=== PATIENT | female | born 1955 | race Caucasian/White ===

== ENCOUNTER 2016-09-13 09:17 | Inpatient (IN) | payer OTHER ==
[2016-07-28 13:52] VITALS: BMI 47.0
--- NOTE | 2016-07-28 14:41 | PAT Medication Instructions ---
Service Date Jul 28, 2016. Current Home Medication List Atenolol (Tenormin), 50 MG PO QAM Calcium Carbonate (Tums), 0.5-1 TAB PO PRN Cholecalciferol (Vitamin D3), 1 CAP PO QAM Hydrochlorothiazide (Hctz), 25 MG PO QAM Meloxicam (Mobic), 15 MG PO QAM Multivitamin (Multivitamin), 1 TAB PO DAILY Tramadol (Ultram), 50 MG PO TID Medication Instructions For Your Scheduled Surgery - Hold the following medications the morning of surgery: Multivitamin (Multivitamin), 1 TAB PO DAILY Calcium Carbonate (Tums), 0.5-1 TAB PO PRN Cholecalciferol (Vitamin D3), 1 CAP PO QAM Hydrochlorothiazide (Hctz), 25 MG PO QAM Meloxicam (Mobic), 15 MG PO QAM (surgeon did not tell patient to stop) - Take the following medications the morning of surgery with a sip of water: Tramadol (Ultram), 50 MG PO TID (can take up to four hours prior to surgery if needed) Atenolol (Tenormin), 50 MG PO QAM - Take the following medications as scheduled the night before surgery: Tramadol (Ultram), 50 MG PO TID If you have any questions please call us at [phone] or [phone] ( [place]) or [phone]
[2016-07-28 15:13] LABS: BASO % 0.7 %; BASO ABS # 0.04 K/uL (0-0.2); COMPLETE YES; HEMATOCRIT 36.2 % (37-47); IG% 0.2 %; LYMPH % 35.7 %; MEAN CELL VOLUME 92.6 fL (80-100); MEAN CORPUSCULAR HEMOGLOBIN 30.9 pg (25-34); MEAN CORPUSCULAR HGB CONC 33.4 g/dl (32-36); MEAN PLATELET VOLUME 11.5 fL (7.4-10.4); MONO % 8.4 %; PLATELET COUNT 193 K/uL (130-400); RED BLOOD COUNT 3.91 M/uL (4.2-5.4); WHITE BLOOD COUNT 5.61 K/uL (4.8-10.8)
--- NOTE | 2016-07-28 15:13 | DIAGNOSTIC IMAGING REPORT ---
CHEST 2 VIEWS ROUTINE CLINICAL HISTORY: Preoperative evaluation COMPARISON STUDY: No previous studies for comparison. FINDINGS: There is mild to moderate elevation/eventration of the right hemidiaphragm. There is no pneumothorax or pleural effusion. Mild linear left basilar opacity suggestive of atelectasis. There is no evidence of pulmonary edema. There is mild cardiomegaly. No consolidation is present. IMPRESSION: 1. No acute cardiopulmonary findings. 2. Mild cardiomegaly. Electronically signed by: Jose Raul Ferrell M.D. 07/28/2016 3:12 PM
[2016-07-28 15:22] LABS: PARTIAL THROMBOPLASTIN RATIO 0.9; PROTHROMBIN TIME (PATIENT) 10.3 SECONDS (9.0-12.0)
[2016-07-28 16:36] LABS: ESTIMATED AVERAGE GLUCOSE 100 mg/dl; HA1C FLAG Normal (Normal)
[2016-07-28 16:47] LABS: BUN/CREATININE RATIO 21.9 (10-20); CREATININE 0.85 mg/dl (0.60-1.20); POTASSIUM 4.2 mmol/L (3.5-5.1)
[2016-07-28 20:24] LABS: CALCIUM 9.6 mg/dl (8.5-10.1)
--- NOTE | 2016-08-15 16:13 | History and Physical ---
History & Physical Date Aug 15, 2016. Chief Complaint Left Knee Pain History of Present Illness Darcy is a pleasant 60-year-old female who presents for preoperative evaluation prior to a Left knee replacement. Patient states that they have been having pain in this knee for many years now, which has gradually worsened, it has now gotten to the point it is affecting her daily activities including walking, standing, going up and down steps. Patient has tried and failed conservative measures including previous cortisone injection, viscosupplementation, bracing, physical therapy, and PO NSAIDs with no relief. At this point in time, patient has failed conservative measures and would like to proceed with a left knee replacement. Past Medical/Surgical History Hypertension Obesity GERD Sciatica history of blood clot Additional History Hepatic Disease: No Hypertension: Yes Infectious Diseases: No Allergies Coded Allergies: No Known Allergies (Unverified , 07/28/16) Home Medications Scheduled Atenolol (Tenormin), 50 MG PO QAM Calcium Carbonate (Tums), 0.5-1 TAB PO PRN Cholecalciferol (Vitamin D3), 1 CAP PO QAM Hydrochlorothiazide (Hctz), 25 MG PO QAM Meloxicam (Mobic), 15 MG PO QAM Multivitamin (Multivitamin), 1 TAB PO DAILY Tramadol (Ultram), 50 MG PO TID Physical Examination Skin: warm/dry, no rash Eyes: normal inspection, EOMI, sclerae normal ENT: normal ENT inspection, pharynx normal Respiratory/Chest: lungs clear, normal breath sounds, no respiratory distress Cardiovascular: regular rate, rhythm, no edema, no murmur Abdomen / GI: normal bowel sounds, non tender Addiitonal Comments: Left Knee: Knee ROM L * Active ROM - Flexion: 100 degrees, Extension: 5 degrees, Factors: pain, Description: Active painful ROM. Knee ROM R * Active ROM - Flexion: 100 degrees, Extension: 5 degrees, Factors: pain, Description: Active painful ROM. Strength LE Normal Strength Description - Normal lower extremity: Bilateral. Knee * Inspection - Gait: Limp. Alignment - Right: neutral, Left: neutral. Ecchymosis - Right: negative, Left: negative. Effusion - Right: mild, Left: mild. Swelling - Right: mild, Left: mild. Maximum tenderness - Right: Medial Joint Line, Left: Medial Joint Line. Patella exam - Crepitation - Right: mild, Left: mild. Patella position - Right: neutral, Left: neutral. Knee Normal Inspection - Atrophy - Right: Absent, Left: Absent. Skin - Right: Normal, Left: Normal. Patella exam - Apprehension - Right: Negative, Left: Negative. Q-angle - Right: Normal, Left: Normal. Posterior drawer - Right: Negative, Left: Negative. Anterior drawer - Right: Negative, Left: Negative. Valgus stress - Right: Negative, Left: Negative. Varus stress - Right: Negative , Left: Negative. Extensor lag - Right: Normal, Left: Normal. Neurovascular LE Normal Neurovascular examination including reflexes, sensation , and pulses is within normal limits. Diagnosis Left Knee DJD PM has outlined above Xrays of left knee: Xrays reviewed of the left knee showing findings consistent with degenerative joint disease including joint space narrowing, subchondral sclerosis and peripheral osteophyte formation. no acute bony pathology, overall valgus alignment. Impression: degenerative joint disease of the left knee with significant valgus alignment, with no acute bony pathology noted. Plan of Treatment Further care discussed with patient and at this point in time has failed conservative measures and would like to proceed with a left total knee replacement. Plan on discharge will be home with home health physical therapy. DVT prophalaxis with TEDs, SCDs and will also place on aspirin 81 mg p.o. b.i.d. for a month postop. Patient will have follow up appointment in our office two weeks post op for staple/suture removal and re-evaluation. Patient otherwise has no other questions or concerns.
[2016-09-13] VITALS (11 sets, daily range): BP systolic 129–167; BP diastolic 59–84; PULSE 60–88; TEMP 36.3–36.6; O2SAT 93–99; Ht 154.9 cm; Wt 117.0 kg
[~2016-09-13] VITALS: Ht 154.9 cm; Wt 117.0 kg
--- NOTE | 2016-09-13 07:15 | History & Physical Bridge Note ---
H&P Re-Evaluation Bridge Note: I have examined the patient, reviewed the History & Physical and in the interval since the performance of the History & Physical I have noted the following changes of clinical significance: No changes noted
[~2016-09-13 09:17] MED LIST: ACETAMINOPHEN 500 MG TAB PO SCH; ATEN50TA8 PO; ATROPINE SULFATE 0.1 MG/ML 5ML SYR IV PRN; BUPIVACAINE 0.25% 30 ML VIAL ONE; BUPIVACAINE 0.5 % 5 MG/1 ML PF 10ML VIAL ONE; CALC500C3 PO; CEFAZOLIN 2000 MG/60 ML D5W 60 ML IV SCH; CHOL2000 PO; CeleBREX 200 MG CAP PO SCH; DEXAMETHASONE 4 MG TAB PO SCH; EpHEDrine SULFATE INJ 50 MG/ML AMP IV PRN; FAMOTIDINE 20 MG TAB PO SCH; FENTANYL CITRATE INJ 50 MCG/1 ML 2 ML VIAL IV PRN; FENTANYL CITRATE INJ 50 MCG/1 ML 2 ML VIAL ONE; GABAPENTIN 300 MG CAP PO SCH; HYDR25TA4 PO; LACTATED RINGER'S 1000ML IV SCH; LACTATED RINGER'S 500 ML IV SCH; LIDOCAINE HCL 2% 2 ML VIAL (20MG/ML) ONE; MELO7.5T5 PO; METOCLOPRAMIDE HCL 10 MG TAB PO SCH; MIDAZOLAM HCL 1 MG/ML 2ML VIAL ONE; MULT-506 PO; NURSING VERBAL MED ORDER ONE; ONDANSETRON INJ 2 MG/ML 2 ML VIAL IV PRN; PROPOFOL IV EMULSION 10 MG/ML 20 ML VIAL IV ONE; ROPIVACAINE 5MG/ML 30 ML 150 MG, BUPIVACAINE/EPINEPHR 0.5% MPF 30 ML, KETOROLAC TROMETH... INFIL SCH; TRAM-10 PO
[2016-09-13] MEDS ORDERED: ORTHO JOINT ANESTHETIC ONE (10:33)
[2016-09-13] MEDS ORDERED: SCOPOLAMINE 1.5 MG TDSY TD ONE (10:52)
[2016-09-13] MEDS: TRANEXAMIC ACID AMP 1,000 MG in NSS 100ML IV SCH ×2 (10:55→15:19)
[2016-09-13] MEDS ORDERED: EpHEDrine SULFATE 50MG/5ML SYR ONE (11:26)
[2016-09-13] MEDS ORDERED: ONDANSETRON INJ 2 MG/ML 2 ML VIAL ONE (11:28)
[2016-09-13] MEDS ORDERED: PHENYLEPHRINE 100MCG/ML 5ML SYR ONE (11:48)
[2016-09-13] MEDS ORDERED: BACITRACIN 50000 UNIT VIAL IR ONE (12:32)
[2016-09-13] MEDS ORDERED: POVIDONE-IODINE OP SOLN 30 ML BTL TOP ONE (12:32)
--- NOTE | 2016-09-13 12:39 | [facility] Post Operative Brief Note ---
Immediate Operative Summary Operative Date Sep 13, 2016. Pre-Operative Diagnosis Degenerative joint disease left knee with significant valgus alignment with no acute bony pathology noted Post-Operative Diagnosis Same as pre-operative diagnosis Procedure(s) Performed Left Total Knee Arthroplasty, Cemented Surgeon Dr. Anirudh Kay Pattern Hanger Surgeon(s) Ran Mortensen PA-C Estimated Blood Loss 10ml Findings severe djd with significant valgus alignment of 24 degrees Specimens A: Left knee bone and tissue Complication(s) None Disposition Recovery Room / PACU
--- NOTE | 2016-09-13 13:06 | OPERATIVE REPORT ---
DATE OF OPERATION: 09/13/2016 PREOPERATIVE DIAGNOSIS: Severe end-stage degenerative joint disease with significant valgus alignment 24 degrees left knee. POSTOPERATIVE DIAGNOSIS: Same. PROCEDURE: Left total knee arthroplasty utilizing Flores \T\ Nephew Journey II total knee arthroplasty with 3 femur, 3 tibia with a 14 x 100 mm stem, 18 mm constrained poly, 29 mm patella. SURGEON: Dr. Kay. EKG TECHNICIAN: Ran Mortensen PA-C, who was necessary for prepping, draping, retraction, wound closure, deep fascia, subQ, and skin and was necessary for the case. ESTIMATED BLOOD LOSS: 10 mL. TOURNIQUET TIME: 1 hour. COMPLICATIONS: None. HISTORY OF PRESENT ILLNESS: The patient is a 60-year-old white male who presents with severe DJD and valgus alignment of her left knee of 24 degrees. She was fit for a patient matched total knee arthroplasty. Due to space and significant valgus nature of her knee discussion regarding foot drop, peroneal nerve palsy was had with the patient and special attention was paid at all times during the surgery to protect the peroneal nerve and careful to not put any undue stress due to the alignment of the patient's knee. The patient's knee was maintained in flexion postoperatively as well. OPERATION AND FINDINGS: PROCEDURE: The patient was properly prepped and draped in supine position for total knee arthroplasty after identifying the appropriate surgical site. An anterior midline incision was made through the subcutaneous tissues down to the region of the extensor mechanism. A medial parapatellar incision was subsequently made. Meticulous hemostasis was obtained and performed at all times. The patella having been subluxed lateralward, medial and lateral meniscal remnants were excised. The patellar cut was then initially made and was sized to the appropriate size. After subluxing the tibia forward the appropriate meniscal fragments having been removed the distal femur was then cut first utilizing a Flores \T\ Nephew block. The distal femoral cuts and chamfer cuts were all made under direct visualization and the proximal tibial osteotomy cut was also made utilizing Flores \T\ Nephew blocks and checked with an extramedullary guide. The appropriate trial components on the femur and tibia were placed. Appropriate trial spacers were used to check flexion and extension gaps. With flexion and extension gaps being equal, the components were then subsequently after thorough irrigation and debridement lavage components were then subsequently cemented in the following order: femur, tibia and patella. Exparel was used for intraoperative anesthesia, the medial parapatellar incision was closed utilizing #1 Vicryl, subQ was closed with 2-0 Vicryl, skin was closed with skin clips. A sterile compression dressing was placed. The patient was taken to recovery room in stable condition. Due to the complex nature of the procedure, the entire surgery was performed with the operational assistance of Ran Mortensen PA-C. The temporary office assistant, under direct supervision, was involved in the actual performance of all aspects of the surgical procedure including hemostasis, tissue retraction and incision, instrument management, patient positioning, and wound closure. I attest to the content of the Intraoperative Record and any orders documented therein. Any exceptio ns are noted below.
[2016-09-13] MEDS ORDERED: MoRPHine SULFATE 2 MG/ML CARP IV PRN (13:15)
[2016-09-13] MEDS ORDERED: DiphenhydrAMINE HCL 50 MG/ML VIAL IV PRN (13:15)
[2016-09-13] MEDS ORDERED: ONDANSETRON INJ 2 MG/ML 2 ML VIAL IV PRN (13:15)
[2016-09-13] MEDS ORDERED: BISACODYL 10 MG SUPP PR PRN (13:15)
[2016-09-13] MEDS ORDERED: MAGNESIUM HYDROXIDE SUSP 30 ML UDC PO PRN (13:15)
[2016-09-13] MEDS ORDERED: ALUMINUM/MAGNESIUM/SIMETH (MAALOX MAX) 30 ML UDC PO PRN (13:15)
[2016-09-13] MEDS ORDERED: ZOLPIDEM TARTRATE 5 MG TAB PO PRN (13:15)
--- NOTE | 2016-09-13 13:41 | DIAGNOSTIC IMAGING REPORT ---
LEFT KNEE 1 OR 2 VIEWS ROUTINE CLINICAL HISTORY: Osteoarthritis COMPARISON: None. DISCUSSION: There are postsurgical changes of a total left knee arthroplasty and patellar resurfacing. The femoral and tibial components appear well seated. No acute fractures are visualized. There are overlying skin mary and surgical drains. There is air in soft tissues consistent with recent surgery. IMPRESSION: Postsurgical changes of a total left knee arthroplasty. Electronically signed by: Sadiq Garcia M.D. 09/13/2016 1:39 PM Dictated Date/Time: 09/13/2016 1:38 PM
--- NOTE | 2016-09-13 14:10 | Anesthesiology Progress Note ---
Anesthesia Post Op Note Date & Time Sep 13, 2016 at 14:10 Vital Signs Pain Intensity: 0 Vital Signs Past 12 Hours Date Time Temp Pulse Resp B/P Pulse Ox O2 Delivery O2 Flow Rate FiO2 09/13/16 13:48 37 128/59 09/13/16 13:45 69 11 97 09/13/16 13:45 69 11 09/13/16 13:43 129/57 09/13/16 13:40 73 12 09/13/16 13:40 73 12 95 09/13/16 13:38 131/61 09/13/16 13:35 81 14 95 09/13/16 13:35 75 14 09/13/16 13:33 125/59 09/13/16 13:30 16 09/13/16 13:30 71 16 09/13/16 13:28 121/61 09/13/16 13:25 72 14 09/13/16 13:25 72 14 95 09/13/16 13:23 116/58 09/13/16 13:20 75 16 09/13/16 13:20 74 16 96 09/13/16 13:18 122/62 09/13/16 13:15 72 14 95 09/13/16 13:15 73 14 09/13/16 13:13 119/54 09/13/16 13:11 122/42 09/13/16 13:10 74 16 09/13/16 13:10 74 16 94 09/13/16 13:10 37.1 78 16 122/42 96 Nasal Cannula 3 09/13/16 09:45 36.6 60 18 156/81 96 Room Air Notes Mental Status: alert / awake / arousable, participated in evaluation Pt Amnestic to Procedure: Yes Nausea / Vomiting: adequately controlled Pain: adequately controlled Airway Patency, RR, SpO2: stable & adequate BP & HR: stable & adequate Hydration State: stable & adequate Neuraxial Anesthesia: was administered, sensory block is resolving Anesthetic Complications: no major complications apparent
[2016-09-13] MEDS: D5W AND 1/2NSS + 20MEQ KCL 1,000 ML IV SCH (15:30)
[2016-09-13] MEDS ORDERED: MoRPHine SULFATE 10 MG/ML CARP/VIAL IV PRN (15:30)
[2016-09-13] MEDS: KETOROLAC TROMETHAMINE 30 MG/ML VIAL IV. SCH ×2 (15:31→22:09)
[2016-09-13] MEDS: MoRPHine SULFATE 4 MG/ML 1 ML CARP\\VIAL IV PRN ×2 (15:56→20:28)
[2016-09-13] MEDS ORDERED: INFLUENZA ADMINISTRATION CHARGE ONE (16:15)
[2016-09-13] MEDS ORDERED: INFLUENZA VIRUS QUAD VACCINE 0.5 ML SYR IM. ONE (16:15)
[2016-09-13] MEDS: FERROUS GLUCONATE 324 MG TAB PO SCH (17:47)
[2016-09-13] MEDS: ACETAMINOPHEN 500 MG TAB PO SCH (17:47)
[2016-09-13] MEDS: SENNA 8.6 MG TAB PO SCH (20:31)
[2016-09-13] MEDS: DOCUSATE SODIUM 100 MG CAP PO SCH (20:31)
[2016-09-13] MEDS: ASPIRIN 81 MG ECTAB PO SCH (20:31)
[2016-09-13] MEDS: OXYCODONE HCL 10 MG TABCR (OXYCONTIN) PO SCH (20:34)
[2016-09-13] MEDS: CEFAZOLIN IV 2,000 MG in DEXTROSE 5% 50ML 50 ML IV SCH (20:34)
[2016-09-14] MEDS: ACETAMINOPHEN 500 MG TAB PO SCH ×3 (01:47→18:01)
[2016-09-14] MEDS: D5W AND 1/2NSS + 20MEQ KCL 1,000 ML IV SCH ×2 (01:47→12:00)
[2016-09-14] MEDS: CEFAZOLIN IV 2,000 MG in DEXTROSE 5% 50ML 50 ML IV SCH (03:42)
[2016-09-14] MEDS: KETOROLAC TROMETHAMINE 30 MG/ML VIAL IV. SCH ×2 (03:42→09:26)
[2016-09-14 03:52] VITALS: BP 116/77; PULSE 63; TEMP 36.5; O2SAT 94
[2016-09-14 05:46] LABS: HEMATOCRIT 32.1 % (37-47); MEAN CELL VOLUME 91.5 fL (80-100); MEAN CORPUSCULAR HEMOGLOBIN 30.5 pg (25-34); MEAN CORPUSCULAR HGB CONC 33.3 g/dl (32-36); MEAN PLATELET VOLUME 12.2 fL (7.4-10.4); PLATELET COUNT 160 K/uL (130-400); RED BLOOD COUNT 3.51 M/uL (4.2-5.4); WHITE BLOOD COUNT 12.56 K/uL (4.8-10.8)
[2016-09-14] MEDS: OXYCODONE HCL IR 5 MG TAB (IMMEDIATE RELEASE) PO PRN ×3 (05:52→18:00)
[2016-09-14 06:16] LABS: CALCIUM 8.5 mg/dl (8.5-10.1); POTASSIUM 4.7 mmol/L (3.5-5.1)
[2016-09-14 07:21] VITALS: BP 128/74; PULSE 56; TEMP 36.5; O2SAT 93
--- NOTE | 2016-09-14 07:37 | Orthopedic Progress Note ---
Orthopedic Progress Note Date of Service Sep 14, 2016. Subjective Post OP Day: 1 (s/p Left TKA) Reports: feeling well, pain controlled w PO medications, Denies: SOB, calf pain , chest pain, complaints, light headedness, nausea / vomiting Objective calves soft nontender, N/V intact, capillary refill less than 2 sec., dressing C /D/I, A&O x3, toes mobile, hemovac drainage (225 last shift) Date Time Temp Pulse Resp B/P Pulse Ox O2 Delivery O2 Flow Rate FiO2 09/14/16 07:21 36.5 56 16 128/74 93 Room Air 09/14/16 03:52 36.5 63 18 116/77 94 Nasal Cannula 09/13/16 23:25 36.3 62 18 159/80 94 Room Air 09/13/16 22:50 Room Air 09/13/16 19:50 36.3 61 18 129/65 95 Room Air 09/13/16 17:51 93 Room Air 09/13/16 17:26 36.4 63 16 141/76 95 Nasal Cannula 2.0 09/13/16 16:20 36.4 62 18 167/84 96 Nasal Cannula 2.0 09/13/16 15:22 36.3 74 18 151/82 94 Nasal Cannula 1.0 09/13/16 15:15 96 Nasal Cannula 2.0 09/13/16 14:50 75 16 142/69 95 Nasal Cannula 2.0 09/13/16 14:20 Nasal Cannula 09/13/16 14:20 36.5 76 14 130/59 99 Nasal Cannula 2.0 09/13/16 14:20 Nasal Cannula 2.0 09/13/16 14:04 69 96 09/13/16 14:04 68 16 09/13/16 14:03 124/63 09/13/16 13:59 71 16 96 09/13/16 13:59 71 16 09/13/16 13:58 127/61 09/13/16 13:54 71 11 09/13/16 13:54 70 11 95 09/13/16 13:53 127/58 09/13/16 13:49 76 12 95 09/13/16 13:49 77 12 09/13/16 13:48 37 128/59 09/13/16 13:45 69 11 97 09/13/16 13:45 69 11 1/18/17 13:43 129/57 09/13/16 13:40 73 12 09/13/16 13:40 73 12 95 09/13/16 13:38 131/61 09/13/16 13:35 81 14 95 09/13/16 13:35 75 14 09/13/16 13:33 125/59 09/13/16 13:30 16 09/13/16 13:30 71 16 09/13/16 13:28 121/61 09/13/16 13:25 72 14 09/13/16 13:25 72 14 95 09/13/16 13:23 116/58 09/13/16 13:20 75 16 09/13/16 13:20 74 16 96 09/13/16 13:18 122/62 09/13/16 13:15 72 14 95 09/13/16 13:15 73 14 09/13/16 13:13 119/54 09/13/16 13:11 122/42 09/13/16 13:10 74 16 09/13/16 13:10 74 16 94 09/13/16 13:10 37.1 78 16 122/42 96 Nasal Cannula 3 09/13/16 09:45 36.6 60 18 156/81 96 Room Air Laboratory Results 24 Hours: Test 09/14/16 05:30 Hematocrit 32.1 % Hemoglobin 10.7 g/dL Assessment & Plan Assessment: POD #1 s/p Left TKA -PT/OT -dvt proph with MARGARET/SCD/ASA -plan for d/c home with HHPT when stable -prevena wound vac Hypertension Obesity GERD Sciatica Discharge Planning Discharge Planning: home with home health DVT Prophylaxis: TEDs, SCDs, ASA Therapy: Physical Therapy
[2016-09-14] MEDS: OXYCODONE HCL 10 MG TABCR (OXYCONTIN) PO SCH ×2 (07:57→20:25)
[2016-09-14] MEDS: MULTIVITAMIN TAB PO SCH (07:59)
[2016-09-14] MEDS: PANTOprazole SOD 40 MG TAB PO SCH (07:59)
[2016-09-14] MEDS: ASPIRIN 81 MG ECTAB PO SCH ×2 (07:59→20:26)
[2016-09-14] MEDS: HYDROCHLOROTHIAZIDE 25 MG TAB PO SCH (07:59)
[2016-09-14 08:00] VITALS: PULSE 70
[2016-09-14] MEDS: FERROUS GLUCONATE 324 MG TAB PO SCH ×3 (08:00→18:01)
[2016-09-14] MEDS: DOCUSATE SODIUM 100 MG CAP PO SCH ×2 (08:00→20:25)
[2016-09-14] MEDS: CHOLECALCIFEROL 1000 INTER.UNIT TAB PO SCH (08:00)
[2016-09-14] MEDS ORDERED: MULTIVITAMIN TAB PO SCH (09:00)
[2016-09-14 11:00] VITALS: BP 138/79; PULSE 49; TEMP 36.5; O2SAT 98
--- NOTE | 2016-09-14 11:00 | Anesthesiology Progress Note ---
Anesthesia Post Op Note Date & Time Sep 14, 2016 at 10:59 Vital Signs Vital Signs Past 12 Hours Date Time Temp Pulse Resp B/P Pulse Ox O2 Delivery O2 Flow Rate FiO2 09/14/16 08:00 70 09/14/16 08:00 Room Air 09/14/16 07:21 36.5 56 16 128/74 93 Room Air 09/14/16 03:52 36.5 63 18 116/77 94 Nasal Cannula 09/13/16 23:25 36.3 62 18 159/80 94 Room Air Notes Mental Status: alert / awake / arousable, participated in evaluation Pt Amnestic to Procedure: Yes Nausea / Vomiting: adequately controlled Pain: adequately controlled Airway Patency, RR, SpO2: stable & adequate BP & HR: stable & adequate Hydration State: stable & adequate Neuraxial Anesthesia: was administered, sensory block resolved Anesthetic Complications: no major complications apparent
[2016-09-14 15:10] VITALS: BP 142/80; PULSE 48; TEMP 36.4; O2SAT 98
--- NOTE | 2016-09-14 16:24 | Discharge Instructions ---
Discharge Instructions Admission Reason for Admission: Left Knee Osteoarthritis Discharge Discharge Diagnosis / Problem: Left Total Knee Replacement Discharge Goals Goal(s): Decrease discomfort, Improve function, Increase independence Activity Recommendations Activity Limitations: as noted below Weightbearing Status: Left weightbearing (as tolerated) . Instructions / Follow-Up Instructions / Follow-Up ACTIVITY RECOMMENDATIONS: SELF CARE INSTRUCTIONS AFTER TOTAL KNEE REPLACEMENT A. You may need to continue a physical therapy program after discharge from the hospital. There are several options available to you. Your doctor will assist you in selecting the best one for you. 1. An out-patient facility 2 to 3 times a week for therapy or home therapy. 2. Continue working on all exercises taught to you in the hospital. Your goals should be to increase bending of your knee to 90 degrees and beyond and to fully straighten your knee. B. You may progress at your own pace from walking with a walker or crutches to a cane; then to no assistive devices. C. Make walking a part of your daily routine. Be up as much as comfortable with rest periods throughout the day. Rest with leg elevation is very important. Use the ice wrap frequently for the first 3-4 weeks. D. There are no restrictions on activities. You may ride in a car, shop, participate in director call and all social activities. E. Wear the long elastic stockings (MARGARET hose) 20 hours a day for 2 weeks after surgery. They can be removed several times a day for laundering and for a bath. F. You may shower, no tub baths until cleared by your doctor. SPECIAL CARE INSTRUCTIONS: VERY IMPORTANT TO READ AND REVIEW A. There are a few signs you need to watch for after you are home. Call [facility] if you notice any of the followin. Increased severe knee pain. Some pain is expected especially when you exercise. 2. Increased swelling in your leg or knee; pain or swelling of the calf muscle in either lower leg. 3. Any fluid drainage from the incision. 4. Shortness of breath or chest pain. B. Please call [facility] at if you have any concerns or questions about your operation or recovery. The doctor or his nurse will return your call promptly. C. You must take antibiotics before dental work, bladder, bowel or other surgery. Your doctor will provide you with a permanent care to carry describing this precaution. IMPORTANT: * REMEMBER TO TAKE ASPIRIN, 81 MG, TWICE DAILY FOR 4 WEEKS UNLESS OTHERWISE DIRECTED. THIS IS YOUR BLOOD THINNER. * HIGH RISK PATIENTS MAY BE PRESCRIBED A STRONGER BLOOD THINNER. THIS WILL BE PROVIDED AT DISCHARGE. * CALL IF INCREASED PAIN, REDNESS, DRAINAGE OR FEVER GREATER THAT 101. * WEAR MARGARET HOSE 20 HOURS PER DAY FOR 2 WEEKS. * YOU MAY HAVE A LARGE BAND-AID LIKE DRESSING (SILVERON). THIS WILL REMAIN ON YOUR INCISION FOR 7 DAYS, THEN CAN BE REMOVED. IF INCISION IS LEAKING THROUGH DRESSING, CALL THE OFFICE . Prevena- This is a large suction dressing covering your incision. This will help pull any excess drainage from the wound and allow your incision to heal properly. You may shower with this if you can keep the unit outside of the shower. If any bleeding or leakage is noted please call your doctor's office. This will remain on your incision for 7 days and then should be removed. This can be done yourself or by the home nursing staff if applicable. The entire unit is disposable once removed. Once removed, keep incision clean and dry. If redness or drainage is noted, please call your surgeon. FOLLOW UP VISIT: If appointment is not already scheduled: Please call [facility] to make a follow-up appointment for 2 weeks after your surgery at . Current Hospital Diet Patient's current hospital diet: Regular Diet Discharge Diet Recommended Diet: Regular Diet Procedures Procedures Performed: Left Total Knee Arthroplasty, Cemented Pending Studies Studies pending at discharge: no Laboratory Results Hemoglobin A1c Test 07/28/16 14:48 Range/Units Estimated Average Glucose 100 mg/dl Hemoglobin A1c 5.1 4.5-5.6 % Medical Emergencies . Who to Call and When: Medical Emergencies: If at any time you feel your situation is an emergency, please call 911 immediately. . Non-Emergent Contact Non-Emergency issues call your: Primary Care Provider, Surgeon . "Provider Documentation" section prepared by Satnam Hightower. VTE Core Measure Inpt VTE Proph given/why not?: Other Anticoagulation (ASA 81mg po bid x 1 month ), T.E.D. Stockings, SCD's
--- NOTE | 2016-09-14 19:30 | Medical Consult ---
History General Date of Service: Sep 14, 2016. Stated Complaint: Left Knee Osteoarthritis HPI The patient is a 60 year old female who presents to [facility] with complaints of Left Knee Osteoarthritis. The patient's primary care provider is Ebonie Fulton M.D.. She is being seen in consultation on POD#1 after left TKA. I am asked to see her regarding bradycardia. She tells me that she frequently has bradycardia at home. She denies any chest pain, palpitations, dyspnea, lightheadedness, dizziness, syncope. Here, she has remained eutensive to mildly hypertensive despite having a heart rate in the 40-50s range throughout the day today. She denies any recent febrile illness, cough, abdominal pain, N/V/D, or urinary complaints. She reports always having some degree of lower extremity edema, which she attributes to sequelae of prior DVTs. She wears compression stockings for this at home. She is currently receiving atenolol 50mg daily along with HCTZ 25mg daily and has been more or less eutensive. She denies any previous history of coronary artery disease or heart failure. Historian: patient Review of Systems Ten systems were reviewed and are negative except as otherwise indicated above in the HPI. Past Medical History Past Medical History: deep vein thrombosis, hypertension, osteoarthritis, other (carpal tunnel syndrome, bilateral, says she was told that "it was inoperable") Family History CAD with [place] in mother (age approx 71) and sister (age approx 66), head and neck cancer in father Social History Hx Tobacco Use In Past Year?: No Smoking Status: Never Smoker Alcohol: socially Drug Use: none Allergies Coded Allergies: No Known Allergies (Unverified , 09/13/16) Current Medications Reported Home Medications Medications Dose Route/Sig Max Daily Dose Days Date Category Tums (Calcium Carbonate) 500 Mg Chew 0.5-1 Tab PO PRN 07/28/16 Reported Multivitamin (Multivitamins) Tab 1 Tab PO DAILY 07/28/16 Reported Vitamin D3 (Cholecalciferol) 2,000 Unit Cap 1 Cap PO QAM 90 07/28/16 Reported Ultram (Tramadol HCl) 50 Mg Tab 50 Mg PO TID 07/28/16 Reported Hctz (Hydrochlorothiazide) 25 Mg Tab 25 Mg PO QAM 07/28/16 Reported Mobic (Meloxicam) 7.5 Mg Tab 15 Mg PO QAM 07/28/16 Reported Tenormin (Atenolol) 50 Mg Tab 50 Mg PO QAM 07/28/16 Reported Physical Physical Exam Vital Signs: Date Time Temp Pulse Resp B/P Pulse Ox O2 Delivery O2 Flow Rate FiO2 09/14/16 15:10 36.4 48 16 142/80 98 Room Air 09/14/16 11:00 36.5 49 16 138/79 98 Room Air 09/14/16 08:00 70 09/14/16 08:00 Room Air 09/14/16 07:21 36.5 56 16 128/74 93 Room Air 09/14/16 03:52 36.5 63 18 116/77 94 Nasal Cannula 09/13/16 23:25 36.3 62 18 159/80 94 Room Air 09/13/16 22:50 Room Air 09/13/16 19:50 36.3 61 18 129/65 95 Room Air General Appearance: WELL-APPEARING, NO APPARENT DISTRESS Eyes: SCLERAE NORMAL, CONJUNCTIVAE NORMAL Neck: TRACHEA MIDLINE, SUPPLE, NO THYROMEGALY Respiratory: BREATH SOUNDS NORMAL, CLEAR TO AUSCULTATION, NO RESPIRATORY DISTRESS Cardiovasular: NORMAL S1S2, NO MURMUR, other (regular, bradycardic around 50bpm ) Abdomen: NON TENDER, NORMAL BOWEL SOUNDS Lower Extremities: edema Neuro: ALERT, ORIENTED x 3 Psychiatric: NORMAL AFFECT Diagnostics Labs Results Past 24 Hours Test 09/14/16 05:30 09/14/16 10:32 Range/Units White Blood Count 12.56 4.8-10.8 K/uL Red Blood Count 3.51 4.2-5.4 M/uL Hemoglobin 10.7 12.0-16.0 g/dL Hematocrit 32.1 37-47 % Mean Corpuscular Volume 91.5 80-100 fL Mean Corpuscular Hemoglobin 30.5 25-34 pg Mean Corpuscular Hemoglobin Concent 33.3 32-36 g/dl RDW Standard Deviation 43.5 36.4-46.3 fL RDW Coefficient of Variation 12.9 11.5-14.5 % Platelet Count 160 130-400 K/uL Mean Platelet Volume 12.2 7.4-10.4 fL Sodium Level 141 136-145 mmol/L Potassium Level 4.7 3.5-5.1 mmol/L Chloride Level 107 98-107 mmol/L Carbon Dioxide Level 26 21-32 mmol/L Anion Gap 8.0 3-11 mmol/L Blood Urea Nitrogen 29 7-18 mg/dl Creatinine 1.00 0.60-1.20 mg/dl Est Creatinine Clear Calc Drug Dose 70.4 ml/min Estimated GFR () 70.4 Estimated GFR (Non- 60.8 BUN/Creatinine Ratio 29.0 10-20 Random Glucose 140 70-99 mg/dl Calcium Level 8.5 8.5-10.1 mg/dl Hepatitis C Antibody Screen NEG NEG Diagnostic Radiology CHEST 2 VIEWS ROUTINE CLINICAL HISTORY: Preoperative evaluation COMPARISON STUDY: No previous studies for comparison. FINDINGS: There is mild to moderate elevation/eventration of the right hemidiaphragm. There is no pneumothorax or pleural effusion. Mild linear left basilar opacity suggestive of atelectasis. There is no evidence of pulmonary edema. There is mild cardiomegaly. No consolidation is present. IMPRESSION: 1. No acute cardiopulmonary findings. 2. Mild cardiomegaly. Electronically signed by: Jose Raul Ferrell M.D. 07/28/2016 3:12 PM EKG Interpretation: other (Sinus bradycardia with T-wave abnormality in lead III) Impression Assessment and Plan (1) Sinus bradycardia Assessment & Plan: Likely related to current beta kelly use, possibly exacerbated by opioid pain medications. Will stop her beta kelly now. If her bradycardia persists off the beta kelly, she should have a formal cardiac evaluation. (2) HTN (hypertension) Status: Chronic Assessment & Plan: This patient does not appear to have a compelling reason to be on a beta kelly. Given her bradycardia, will switch to lisinopril 20mg daily. This can be uptitrated by her PCP if necessary. (3) Left knee DJD Status: Chronic Assessment & Plan: S/p left TKA, further care per Orthopedic service (4) Carpal tunnel syndrome on both sides Status: Chronic Assessment & Plan: If she is not a surgical candidate, should consider adjunct therapy to possibly include medication to address neuropathic pain, such as gabapentin, or splinting. I would defer this to her PCP. Additional Copies To Ebonie Fulton M.D.
[2016-09-14] MEDS: SENNA 8.6 MG TAB PO SCH (21:47)
[2016-09-14 23:00] VITALS: BP 131/84; PULSE 55; TEMP 36.5; O2SAT 97
[2016-09-15] MEDS: ACETAMINOPHEN 500 MG TAB PO SCH ×2 (05:47→13:58)
[2016-09-15 06:02] VITALS: BP 175/82; PULSE 58; TEMP 36.9; O2SAT 98
[2016-09-15 07:00] VITALS: BP 133/69; PULSE 62; TEMP 36.6; O2SAT 98
--- NOTE | 2016-09-15 07:04 | Orthopedic Progress Note ---
Orthopedic Progress Note Date of Service Sep 15, 2016. Subjective Post OP Day: 2 Reports: feeling well, pain controlled w PO medications, Denies: SOB, calf pain , chest pain, complaints, light headedness, nausea / vomiting Objective calves soft nontender, N/V intact, capillary refill less than 2 sec., dressing C /D/I (prevena intact), A&O x3, toes mobile Date Time Temp Pulse Resp B/P Pulse Ox O2 Delivery O2 Flow Rate FiO2 09/15/16 06:02 36.9 58 16 175/82 98 Room Air 09/15/16 00:40 Room Air 09/14/16 23:00 36.5 55 18 131/84 97 Room Air 09/14/16 20:20 Room Air 09/14/16 15:10 36.4 48 16 142/80 98 Room Air 09/14/16 11:00 36.5 49 16 138/79 98 Room Air 09/14/16 08:00 70 09/14/16 08:00 Room Air 09/14/16 07:21 36.5 56 16 128/74 93 Room Air Assessment & Plan Assessment: POD #2 s/p Left TKA -PT/OT -dvt proph with MARGARET/SCD/ASA -plan for d/c home with HHPT when stable -prevena wound vac Bradycardia- appreciate med input. will have her f/u with PCP as outpatient Hypertension Obesity GERD Sciatica (1) Sinus bradycardia (2) HTN (hypertension) Chronic (3) Left knee DJD Chronic (4) Carpal tunnel syndrome on both sides Chronic Discharge Planning Discharge Planning: home with home health DVT Prophylaxis: TEDs, SCDs, ASA Therapy: Physical Therapy
[2016-09-15] MEDS ORDERED: ASPEC81 PO (07:09)
[2016-09-15] MEDS ORDERED: RXC5 PO (07:09)
[2016-09-15] MEDS ORDERED: ACET-1138 PO (07:09)
[2016-09-15] MEDS ORDERED: OXYSR10 PO (07:09)
[2016-09-15] MEDS ORDERED: ONDA8TAB6 PO (07:09)
[2016-09-15] MEDS: MULTIVITAMIN TAB PO SCH (07:33)
[2016-09-15] MEDS: OXYCODONE HCL 10 MG TABCR (OXYCONTIN) PO SCH (07:33)
[2016-09-15] MEDS: OXYCODONE HCL IR 5 MG TAB (IMMEDIATE RELEASE) PO PRN ×2 (07:33→13:58)
[2016-09-15] MEDS: PANTOprazole SOD 40 MG TAB PO SCH (07:33)
[2016-09-15] MEDS: CHOLECALCIFEROL 1000 INTER.UNIT TAB PO SCH (07:34)
[2016-09-15] MEDS: FERROUS GLUCONATE 324 MG TAB PO SCH ×2 (07:34→12:49)
[2016-09-15] MEDS: HYDROCHLOROTHIAZIDE 25 MG TAB PO SCH (07:34)
[2016-09-15] MEDS: ASPIRIN 81 MG ECTAB PO SCH (08:39)
[2016-09-15] MEDS: DOCUSATE SODIUM 100 MG CAP PO SCH (08:39)
[2016-09-15] MEDS ORDERED: AMLODIPINE BESYLATE 5 MG TAB PO SCH (09:00)
--- NOTE | 2016-09-15 10:19 | Progress Note ---
Subjective Date of Service: Sep 15, 2016. Subjective Pt evaluation today including: conversation w/ patient, physical exam, chart review, lab review, review of studies, review of inpatient medication list Review of Systems Constitutional: No chills, No fatigue, No fever, No problem reported, No see HPI, No sweats, No weakness, No weight loss Eyes: No diplopia, No discharge, No eye pain, No problem reported, No redness, No see HPI, No worsening of vision ENT: No dental problems, No hearing loss, No nasal symptoms, No problem reported, No see HPI, No sore throat, No tinnitus, No trouble swallowing, No unusual epistaxis Respiratory: No cough, No dyspnea at rest, No dyspnea on exertion, No hemoptysis, No problem reported, No see HPI, No shortness of breath, No sputum, No wheezing Cardiac: No PND, No chest pain, No claudication, No edema, No orthopnea, No palpitations, No problem reported, No see HPI Abdomen: No GI bleeding, No constipation, No diarrhea, No nausea, No pain, No problem reported, No see HPI, No vomiting Musculoskeletal: No calf pain, No joint pain, No muscle pain, No problem reported, No see HPI, No swelling Female : No abnormal vaginal bleeding, No dysuria, No hematuria, No incontinence, No problem reported, No see HPI, No urinary frequency, No vaginal discharge Neurologic: No balance problems, No memory loss, No numbness/tingling, No paralysis, No problem reported, No see HPI, No vertigo, No weakness Psychiatric: No anhedonism, No anxiety, No depression symptoms, No insomnia, No problem reported, No see HPI, No substance abuse Heme: No abnormal bleeding/bruising, No clotting problems, No night sweats, No problem reported, No see HPI, No swollen lymph nodes Endo: No excessive thirst, No excessive urination, No fatigue, No problem reported, No see HPI Skin: No bleeding, No color change, No itch, No new/changing skin lesions, No problem reported, No rash, No see HPI Medications Current Inpatient Medications Medications (Trade) Dose Ordered Sig/Caroline Route Start Time Stop Time Status Last Admin Dose Admin Hydrochlorothiazide (Hydrochlorothiazide Tab) 25 mg QAM PO 09/14/16 09:00 10/14/16 08:59 09/15/16 07:34 25 MG Cholecalciferol (Vitamin D Tab) 2,000 inter.unit QAM PO 09/14/16 09:00 10/14/16 08:59 09/15/16 07:34 2,000 INTER.UNIT Morphine Sulfate (MoRPHine SULFATE INJ) 2 mg Q4HWA PRN IV 09/13/16 13:15 09/27/16 13:14 Oxycodone HCl (Roxicodone Immediate Rel Tab) 1 TABLET FOR PAIN RATING... Q4H PRN PO 09/13/16 13:15 09/27/16 13:14 09/15/16 07:33 5 MG Oxycodone HCl (Oxycontin Tab) 10 mg Q12 PO 09/13/16 21:00 09/27/16 20:59 09/15/16 07:33 10 MG Acetaminophen (Tylenol Tab) 1,000 mg Q8H PO 09/13/16 18:00 10/13/16 17:59 09/15/16 05:47 1,000 MG Magnesium Hydroxide (Milk Of Magnesia Susp) 30 ml Q6H PRN PO 09/13/16 13:15 10/13/16 13:14 Bisacodyl (Dulcolax Supp) 10 mg DAILY PRN RI 09/13/16 13:15 10/13/16 13:14 Senna (Senokot Tab) 17.2 mg HS PO 09/13/16 21:00 10/13/16 20:59 09/14/16 21:47 17.2 MG Docusate Sodium (coLACE CAP) 100 mg BID PO 09/13/16 21:00 10/13/16 20:59 09/15/16 08:39 100 MG Diphenhydramine HCl (Benadryl Inj) 25 mg Q8H PRN IV 09/13/16 13:15 10/13/16 13:14 Al Hydrox/Mg Hydrox/Simethicone (Maalox Max Susp) 15 ml Q4H PRN PO 09/13/16 13:15 10/13/16 13:14 Zolpidem Tartrate (Ambien Tab) 5 mg HSZ PRN PO 09/13/16 13:15 10/13/16 13:14 Multivitamins (Multivitamin Tab) 1 tab QAM PO 09/14/16 09:00 10/14/16 08:59 09/15/16 07:33 1 TAB Ondansetron HCl (Zofran Inj) 4 mg Q6H PRN IV 09/13/16 13:15 10/13/16 13:14 Ferrous Gluconate (Ferrous Gluconate Tab) 324 mg TIDM PO 09/13/16 17:45 10/13/16 17:59 09/15/16 07:34 324 MG Pantoprazole Sodium (Protonix Tab) 40 mg QAM PO 09/14/16 09:00 10/14/16 08:59 09/15/16 07:33 40 MG Aspirin (Ecotrin Tab) 81 mg BID PO 09/13/16 21:00 10/13/16 20:59 09/15/16 08:39 81 MG Morphine Sulfate (MoRPHine SULFATE INJ) 4 mg Q4HWA PRN IV 09/13/16 15:30 09/27/16 15:29 09/13/16 20:28 4 MG Morphine Sulfate (MoRPHine SULFATE INJ) 8 mg Q4HWA PRN IV 09/13/16 15:30 09/27/16 15:29 Amlodipine Besylate (Norvasc Tab) 5 mg QAM PO 09/15/16 09:00 10/15/16 08:59 09/15/16 07:33 5 MG Objective Vital Signs Date Time Temp Pulse Resp B/P Pulse Ox O2 Delivery O2 Flow Rate FiO2 09/15/16 07:39 Room Air 09/15/16 07:00 36.6 62 16 133/69 98 Room Air 09/15/16 06:02 36.9 58 16 175/82 98 Room Air 09/15/16 00:40 Room Air 09/14/16 23:00 36.5 55 18 131/84 97 Room Air 09/14/16 20:20 Room Air 09/14/16 15:10 36.4 48 16 142/80 98 Room Air 09/14/16 11:00 36.5 49 16 138/79 98 Room Air Physical Exam General Appearance: no apparent distress Eyes: normal inspection, PERRL, EOMI ENT: normal ENT inspection, hearing grossly normal, TMs normal, pharynx normal Neck: supple Respiratory/Chest: chest non-tender, lungs clear, normal breath sounds, no respiratory distress Cardiovascular: regular rate, rhythm, no gallop, no JVD, no murmur, + bradycardia Abdomen: normal bowel sounds, non tender, soft, no organomegaly Extremities: normal range of motion, non-tender, normal inspection Neurologic/Psychiatric: research project manager II-XII nml as tested, no motor/sensory deficits, alert, normal mood/affect, oriented x 3 Skin: normal color, warm/dry, no rash Laboratory Results Last 24 Hours Test 09/14/16 10:32 Hepatitis C Antibody Screen NEG Assessment and Plan The patient is a 60 year old female s/p left TKA. found to have bradycardia. sinus joel cardia as per patient it is not new Atenolol was stopped, she was started on Norvasc 5mg po daily continue HCTZ follow up with floor covering printer assistant as an out patient Cardiac enz check due to some non specific EKG canges she was offered a floor covering printer assistant consult here but she prefers to see some one outside The patient's primary care provider is Ebonie Fulton M.D. HTN given a prescription with norvasc instructed to check her BP daily and D/W PCP Obesity instructed to do sleep study as an out patient carpel tunnel syndrome Left knee arthritis S/P TK PT and DVT prophylaxis as per ortho team from the medical aspect she can be discharged and follow up with floor covering printer assistant as an out patient
[2016-09-15 11:39] VITALS: BP 126/73; PULSE 62; O2SAT 98
[2016-09-15 13:47] VITALS: BP 126/73; PULSE 62; TEMP 36.6; O2SAT 98
--- NOTE | 2016-09-19 00:33 | DISCHARGE SUMMARY ---
DISCHARGE DIAGNOSIS: Degenerative joint disease, left knee. SECONDARY DIAGNOSES: Hypertension, obesity, GERD, sciatica and history of DVT in the past. CONSULTS: Norm Henning M.D. COMPLICATIONS: None. PROCEDURE: Left total knee arthroplasty by Dr. Kay on 09/13/2016. BRIEF HISTORY: As dictated in history and physical. HOSPITAL SUMMARY: The patient was admitted on the above date and had the above-noted surgery performed which she tolerated well. On the first postoperative day, she was feeling well and pain was controlled. She had no complaints. Calves were soft, nontender, neurovascularly intact. Capillary refill was less than 2 seconds. Dressings were clean, dry and intact. Toes were mobile. Vital signs at that time were stable and hemoglobin was 10.7. She had been started on physical therapy protocol and continued on DVT prophylaxis and pain management. She developed bradycardia later that day and Dr. Henning was consulted and saw the patient on 09/14/2016. He felt that her bradycardia was likely related to her current beta kelly use, exacerbated by opioid pain medications. Plans were to stop the beta kelly at that point in time and if it persists, to remain off the beta kelly until her pulse begins to normalize. They also switched her to lisinopril 10 mg daily after taking away her beta kelly with her history of hypertension. She was continued on her protocol and was remaining stable. By her second postoperative day, she was feeling well and pain was controlled. Vital signs showed pulse up to 58, BPs fluctuated, systolics from 128-175. Calves were soft, nontender, neurovascularly intact. Dressings clean, dry and intact. Toes were mobile. She was progressing well with physical therapy and she continued to remain medically stable and it was felt that she could be discharged to home. For further review, please see chart. LAB AND X-RAY DATA: As per chart. DISCHARGE INSTRUCTIONS: The patient was discharged to home in satisfactory condition on 09/15/2016. DIET: Regular. ACTIVITY: Weightbearing as tolerated in left lower extremity. Follow TKA instruction sheets and special care instructions as noted. Follow up with Dr. Kay in 2 weeks. The patient to call for appointment if one has not been made for you. DISCHARGE MEDICATIONS: Acetaminophen 1000 mg p.o. q. 8 hours, aspirin 81 mg p.o. b.i.d., Zofran 8 mg p.o. q. 8 hours p.r.n. nausea, OxyContin 10 mg p.o. q. 12 hours, oxycodone 5-10 mg p.o. q. 4 hours p.r.n. Continue taking atenolol 50 mg p.o. q.a.m., calcium carbonate 1/2 tab to 1 tab p.o. p.r.n., vitamin D3 1 cap p.o. q.a.m., hydrochlorothiazide 25 mg p.o. q.a.m., multivitamin 1 tab p.o. daily. Stop taking meloxicam and tramadol.
[2017-02-20] MEDS ORDERED: ASPI81TA28 PO (13:41)
[2017-02-20] MEDS ORDERED: ACET-1256 PO (13:41)
[2017-02-20] MEDS ORDERED: TNR25X PO (13:41)
[2017-02-20] MEDS ORDERED: MELO15TA4 PO (13:41)
[2017-02-20] MEDS ORDERED: AMLO-110 PO (13:41)
== END 2016-09-15 15:40 | disposition home health service (06) | DRG 470 ==
LOC: ENRESERVDT → ENRESERVTM → C.ACU 09:17 → C.3E 09:42 → UNDODISIN 09-14 10:39
PROVIDERS: ADMIT Orthopaedic Surgery; ATTEND Orthopaedic Surgery
PROC: 0SRD0J9 Replacement of Left Knee Joint with Synthetic Substitute, Cemented, Open Approach (ICD-10-PCS; principal; 2016-09-13 10:45)
DX: M17.12 Unilateral primary osteoarthritis, left knee (principal); Z68.42 Body mass index [BMI] 45.0-49.9, adult; M21.062 Valgus deformity, not elsewhere classified, left knee; R00.1 Bradycardia, unspecified; I10 Essential (primary) hypertension; K21.9 Gastro-esophageal reflux disease without esophagitis; M54.30 Sciatica, unspecified side; G56.01 Carpal tunnel syndrome, right upper limb; E66.01 Morbid (severe) obesity due to excess calories; Z86.718 Personal history of other venous thrombosis and embolism; Z23 Encounter for immunization; Z79.1 Long term (current) use of non-steroidal anti-inflammatories (NSAID); Z79.891 Long term (current) use of opiate analgesic; Z79.899 Other long term (current) drug therapy

== ENCOUNTER 2017-03-14 10:36 | Inpatient (IN) | payer OTHER ==
[2017-02-20 13:20] VITALS: Ht 156.2 cm; Wt 123.7 kg
--- NOTE | 2017-02-20 13:59 | PAT Medication Instructions ---
Service Date Feb 20, 2017. Current Home Medication List Acetaminophen (Tylenol), 2 TAB PO Q8 PRN for Pain Amlodipine (Norvasc), 5 MG PO HS Aspirin (Aspirin Ec), 81 MG PO QAM Atenolol (Atenolol), 1 TAB PO QAM Calcium Carbonate (Tums), 0.5-1 TAB PO PRN PRN for Heartburn Cholecalciferol (Vitamin D3), 1 CAP PO QAM Hydrochlorothiazide (Hctz), 25 MG PO QAM Meloxicam (Meloxicam), 1 TAB PO QAM Multivitamin (Multivitamin), 1 TAB PO QAM Medication Instructions For Your Scheduled Surgery - Check with surgeon for instructions: Meloxicam (Meloxicam), 1 TAB PO QAM - Hold the following medications the morning of surgery: Multivitamin (Multivitamin), 1 TAB PO QAM Cholecalciferol (Vitamin D3), 1 CAP PO QAM Hydrochlorothiazide (Hctz), 25 MG PO QAM Calcium Carbonate (Tums), 0.5-1 TAB PO PRN PRN for Heartburn - Take the following medications the morning of surgery with a sip of water: Atenolol (Atenolol), 1 TAB PO QAM Acetaminophen (Tylenol), 2 TAB PO Q8 PRN for Pain (if needed) Aspirin (Aspirin Ec), 81 MG PO QAM (okay to continue per surgeon) - Take the following medications as scheduled the night before surgery: Calcium Carbonate (Tums), 0.5-1 TAB PO PRN PRN for Heartburn (if needed) Amlodipine (Norvasc), 5 MG PO HS Acetaminophen (Tylenol), 2 TAB PO Q8 PRN for Pain (if needed) If you have any questions please call us at [phone] or [phone] or [phone]
[2017-02-20 14:47] LABS: BASO % 0.6 %; BASO ABS # 0.04 K/uL (0-0.2); COMPLETE YES; EOS % 4.8 %; HEMATOCRIT 40.4 % (37-47); IG% 0.3 %; LYMPH % 33.9 %; LYMPH ABS # 2.21 K/uL (1.2-3.4); MEAN CELL VOLUME 88.6 fL (80-100); MEAN CORPUSCULAR HEMOGLOBIN 28.9 pg (25-34); MEAN CORPUSCULAR HGB CONC 32.7 g/dl (32-36); MEAN PLATELET VOLUME 11.5 fL (7.4-10.4); MONO % 7.8 %; NEUT % 52.6 %; PLATELET COUNT 227 K/uL (130-400); RED BLOOD COUNT 4.56 M/uL (4.2-5.4); WHITE BLOOD COUNT 6.52 K/uL (4.8-10.8)
[2017-02-20 15:01] LABS: URINE APPEARANCE CLEAR (CLEAR); URINE BILIRUBIN NEG (NEG); URINE COLOR YELLOW; URINE NITRITE NEG (NEG); URINE SPECIFIC GRAVITY 1.022 (1.000-1.030); UROBILINOGEN NEG (NEG); ZZUR CULT IF INDIC CLEAN CATCH NO
[2017-02-20 15:02] LABS: INR 0.9 (0.9-1.1); PARTIAL THROMBOPLASTIN RATIO 0.9
[2017-02-20 15:03] LABS: MANUAL MICROSCOPIC REQUIRED? NO; REVIEW REQ? NO
[2017-02-20 15:05] LABS: ESTIMATED AVERAGE GLUCOSE 103 mg/dl; HA1C FLAG Normal (Normal)
[2017-02-20 15:47] LABS: BUN/CREATININE RATIO 24.7 (10-20); CALCIUM 9.2 mg/dl (8.5-10.1); POTASSIUM 4.4 mmol/L (3.5-5.1)
--- NOTE | 2017-03-01 13:22 | History and Physical ---
History & Physical Date of Service Mar 01, 2017. History & Physical Chief Complaint Right Knee Pain History of Present Illness Darcy is a pleasant 61-year-old female who presents for preoperative evaluation prior to a Right knee replacement. Patient states that they have been having pain in this knee for many years now, which has gradually worsened, it has now gotten to the point it is affecting her daily activities including walking, standing, going up and down steps. Patient has tried and failed conservative measures including previous cortisone injection, viscosupplementation, bracing, physical therapy, and PO NSAIDs with no relief. At this point in time, patient has failed conservative measures and would like to proceed with a right knee replacement. She recently had her left knee replacement and is doing well. Past Medical/Surgical History Hypertension Obesity GERD Sciatica history of blood clot Additional History Hepatic Disease: No Hypertension: Yes Infectious Diseases: No Allergies Coded Allergies: No Known Allergies Home Medications Scheduled Atenolol (Tenormin), 50 MG PO QAM Calcium Carbonate (Tums), 0.5-1 TAB PO PRN Cholecalciferol (Vitamin D3), 1 CAP PO QAM Hydrochlorothiazide (Hctz), 25 MG PO QAM Meloxicam (Mobic), 15 MG PO QAM Multivitamin (Multivitamin), 1 TAB PO DAILY Tramadol (Ultram), 50 MG PO TID Physical Examination Skin: warm/dry, no rash Eyes: normal inspection, EOMI, sclerae normal ENT: normal ENT inspection, pharynx normal Respiratory/Chest: lungs clear, normal breath sounds, no respiratory distress Cardiovascular: regular rate, rhythm, no edema, no murmur Abdomen / GI: normal bowel sounds, non tender Addiitonal Comments: Right Knee: Knee ROM L * Active ROM - Flexion: 115 degrees, Extension: 0 degrees, Factors: pain, Description: Active pain-free ROM. Knee ROM R * Active ROM - Flexion: 100 degrees, Extension: 5 degrees, Factors: pain, Description: Active painful ROM. Strength LE Normal Strength Description - Normal lower extremity: Bilateral. Knee * Inspection - Gait: Limp. Alignment - Right: varus, Left: neutral. Ecchymosis - Right: negative, Left: negative. Effusion - Right: mild, Left: mild. Swelling - Right: mild, Left: mild. Maximum tenderness - Right: Medial Joint Line, Left: Medial Joint Line. Patella exam - Crepitation - Right: mild, Left: mild. Patella position - Right: neutral, Left: neutral. Knee Normal Inspection - Atrophy - Right: Absent, Left: Absent. Skin - Right: Normal, Left: well healed surgical incision. Patella exam - Apprehension - Right : Negative, Left: Negative. Q-angle - Right: Normal, Left: Normal. Posterior drawer - Right: Negative, Left: Negative. Anterior drawer - Right: Negative, Left: Negative. Valgus stress - Right: Negative, Left: Negative. Varus stress - Right: Negative, Left: Negative. Extensor lag - Right: Normal, Left: Normal. Neurovascular LE Normal Neurovascular examination including reflexes, sensation , and pulses is within normal limits. Diagnosis Right Knee DJD PMH has outlined above Xrays of Right knee: Xrays reviewed of the Right knee showing findings consistent with degenerative joint disease including joint space narrowing, subchondral sclerosis and peripheral osteophyte formation. no acute bony pathology, overall varus alignment. Impression: degenerative joint disease of the right knee with significant varus alignment, with no acute bony pathology noted. Plan of Treatment Further care discussed with patient and at this point in time has failed conservative measures and would like to proceed with a right total knee replacement. Plan on discharge will be home with home health physical therapy. DVT prophalaxis with TEDs, SCDs and will also place on aspirin 81 mg p.o. b.i.d. for a month postop. Patient will have follow up appointment in our office two weeks post op for staple/suture removal and re-evaluation. Patient otherwise has no other questions or concerns.
--- NOTE | 2017-03-09 10:12 | History and Physical ---
History & Physical Date of Service Mar 09, 2017. History & Physical Chief Complaint Right Knee Pain History of Present Illness Darcy is a pleasant 61-year-old female who presents for preoperative evaluation prior to a Right knee replacement. Patient states that they have been having pain in this knee for many years now, which has gradually worsened, it has now gotten to the point it is affecting her daily activities including walking, standing, going up and down steps. She recently had her left knee replaced earlier this year and is doing well. Patient has tried and failed conservative measures including previous cortisone injection, viscosupplementation, bracing, physical therapy, and PO NSAIDs with no relief. At this point in time, patient has failed conservative measures and would like to proceed with a right knee replacement. Past Medical/Surgical History Hypertension Obesity GERD Sciatica history of blood clot Left TKA in 2017 previous knee scopes both knees x 2 Tonsils Hernia repair Additional History Hepatic Disease: No Hypertension: Yes Infectious Diseases: No Allergies Coded Allergies: No Known Allergies (Unverified , 07/28/16) Home Medications Scheduled Atenolol (Tenormin), 50 MG PO QAM Calcium Carbonate (Tums), 0.5-1 TAB PO PRN Cholecalciferol (Vitamin D3), 1 CAP PO QAM Hydrochlorothiazide (Hctz), 25 MG PO QAM Meloxicam (Mobic), 15 MG PO QAM Multivitamin (Multivitamin), 1 TAB PO DAILY Tramadol (Ultram), 50 MG PO TID Physical Examination Skin: warm/dry, no rash Eyes: normal inspection, EOMI, sclerae normal ENT: normal ENT inspection, pharynx normal Respiratory/Chest: lungs clear, normal breath sounds, no respiratory distress Cardiovascular: regular rate, rhythm, no edema, no murmur Abdomen / GI: normal bowel sounds, non tender Addiitonal Comments: Right Knee: Knee ROM L * Active ROM - Flexion: 115 degrees, Extension: 0 degrees, Factors: pain, Description: Active painful ROM. Knee ROM R * Active ROM - Flexion: 100 degrees, Extension: 5 degrees, Factors: pain, Description: Active painful ROM. Strength LE Normal Strength Description - Normal lower extremity: Bilateral. Knee * Inspection - Gait: Limp. Alignment - Right: neutral, Left: neutral. Ecchymosis - Right: negative, Left: negative. Effusion - Right: mild, Left: mild. Swelling - Right: mild, Left: mild. Maximum tenderness - Right: Medial Joint Line, Left: Medial Joint Line. Patella exam - Crepitation - Right: mild, Left: mild. Patella position - Right: neutral, Left: neutral. Knee Normal Inspection - Atrophy - Right: Absent, Left: Absent. Skin - Right: Normal, Left: Normal. Patella exam - Apprehension - Right: Negative, Left: Negative. Q-angle - Right: Normal, Left: Normal. Posterior drawer - Right: Negative, Left: Negative. Anterior drawer - Right: Negative, Left: Negative. Valgus stress - Right: Negative, Left: Negative. Varus stress - Right: Negative , Left: Negative. Extensor lag - Right: Normal, Left: Normal. Neurovascular LE Normal Neurovascular examination including reflexes, sensation , and pulses is within normal limits. Diagnosis Right Knee DJD PMH has outlined above Xrays of Right knee: Xrays reviewed of the Right knee showing findings consistent with degenerative joint disease including joint space narrowing, subchondral sclerosis and peripheral osteophyte formation. no acute bony pathology, overall valgus alignment. Impression: degenerative joint disease of the right knee with significant valgus alignment, with no acute bony pathology noted. Plan of Treatment Further care discussed with patient and at this point in time has failed conservative measures and would like to proceed with a right total knee replacement. Plan on discharge will be home with home health physical therapy. DVT prophalaxis with TEDs, SCDs and will also place on aspirin 81 mg p.o. b.i.d. for a month postop. Patient will have follow up appointment in our office two weeks post op for staple/suture removal and re-evaluation. Patient otherwise has no other questions or concerns.
[2017-03-14] VITALS (7 sets, daily range): BP systolic 109–185; BP diastolic 67–83; PULSE 57–62; TEMP 36.3–36.8; O2SAT 95–99
[~2017-03-14] VITALS: Ht 156.2 cm; Wt 123.7 kg
[~2017-03-14 10:36] MED LIST changes: +ACET-1256 PO; +AMLO-110 PO; +ASPI81TA28 PO; -ATEN50TA8 PO; -ATROPINE SULFATE 0.1 MG/ML 5ML SYR IV PRN; -BUPIVACAINE 0.25% 30 ML VIAL ONE; -CEFAZOLIN 2000 MG/60 ML D5W 60 ML IV SCH; +CEFAZOLIN 3000 MG/65 ML D5W 65 ML IV SCH; -EpHEDrine SULFATE INJ 50 MG/ML AMP IV PRN; -FENTANYL CITRATE INJ 50 MCG/1 ML 2 ML VIAL IV PRN; -FENTANYL CITRATE INJ 50 MCG/1 ML 2 ML VIAL ONE; +LACTATED RINGER'S 1000ML 1,000 ML IV SCH; +LACTATED RINGER'S 1000ML 500 ML IV ONE; -LACTATED RINGER'S 1000ML IV SCH; -LACTATED RINGER'S 500 ML IV SCH; -LIDOCAINE HCL 2% 2 ML VIAL (20MG/ML) ONE; +MELO15TA4 PO; -MELO7.5T5 PO; -METOCLOPRAMIDE HCL 10 MG TAB PO SCH; -MIDAZOLAM HCL 1 MG/ML 2ML VIAL ONE; -NURSING VERBAL MED ORDER ONE; -ONDANSETRON INJ 2 MG/ML 2 ML VIAL IV PRN; -PROPOFOL IV EMULSION 10 MG/ML 20 ML VIAL IV ONE; -ROPIVACAINE 5MG/ML 30 ML 150 MG, BUPIVACAINE/EPINEPHR 0.5% MPF 30 ML, KETOROLAC TROMETH... INFIL SCH; +TNR25X PO; -TRAM-10 PO
[2017-03-14] MEDS ORDERED: MIDAZOLAM HCL 1 MG/ML 2ML VIAL ONE (11:41)
[2017-03-14] MEDS ORDERED: FENTANYL CITRATE INJ 50 MCG/1 ML 2 ML VIAL ONE (11:41)
[2017-03-14] MEDS ORDERED: SCOPOLAMINE 1.5 MG TDSY TD ONE (12:21)
[2017-03-14] MEDS ORDERED: FENTANYL CITRATE INJ 50 MCG/1 ML 2 ML VIAL IV PRN (12:30)
[2017-03-14] MEDS ORDERED: ATROPINE SULFATE 0.1 MG/ML 5ML SYR IV PRN (12:30)
[2017-03-14] MEDS ORDERED: EpHEDrine SULFATE INJ 50 MG/ML AMP IV PRN (12:30)
[2017-03-14] MEDS ORDERED: NURSING VERBAL MED ORDER ONE (12:30)
[2017-03-14] MEDS ORDERED: ONDANSETRON INJ 2 MG/ML 2 ML VIAL IV PRN ×2 (12:30→15:00)
[2017-03-14] MEDS ORDERED: POVIDONE-IODINE OP SOLN 30 ML BTL ONE (12:35)
[2017-03-14] MEDS ORDERED: BACITRACIN 50000 UNIT VIAL ONE (12:35)
[2017-03-14] MEDS ORDERED: PROPOFOL IV EMULSION 10 MG/ML 20 ML VIAL IV ONE (13:28)
[2017-03-14] MEDS ORDERED: LIDOCAINE 2% 20 MG/ML 5ML SYR ONE (13:28)
[2017-03-14] MEDS ORDERED: ROPIVACAINE 5MG/ML 30 ML 150 MG, BUPIVACAINE/EPINEPHR 0.5% MPF 30 ML, KETOROLAC TROMETH... INFIL SCH ×7 (14:00)
--- NOTE | 2017-03-14 14:18 | [facility] Operative Report ---
Operative Report Operative Date Mar 14, 2017. Pre-Operative Diagnosis Right knee degenerative joint disease Post-Operative Diagnosis Right knee degenerative joint disease Procedure(s) Performed Right Total Knee Arthroplasty with Stemmed Tibia Versly journey to patient-matched 30 arthroplasty size 4 femur with a 14 x 100 mm stem on the tibia size 3 tibia with a 14 x 100 mm stem on the tibia a 15 poly-constrained [address] Kay Impact Hammer Operator Surgeon(s) Ran Minor PA-C Estimated Blood Loss 10cc Findings Severe end-stage tricompartmental degenerative joint disease right knee Specimens A Right knee bone and tissue Complication(s) None Disposition Recovery Room / PACU Indications Severe end-stage trichloral degenerative joint disease right knee failed CONSERVATIVE management including injections anti-inflammatories rest activity modification and presents for total knee arthritis after thorough discussion of her some complication Description of Procedure After proper prepping and draping of the Right lower extremity anterior midline incision was made over the region of the extensor extensor mechanism after meticulous hemostasis was obtained and maintained in subcutaneous tissues a medial parapatellar incision was made The patella was subluxed lateralward the medial lateral gutter were cleaned from any hypertrophic synovitis and scar tissue of the distal femoral block was placed and the distal femoral osteotomy cut was made subsequently the chamfers anterior and posterior osteotomy cuts were made utilizing the 4-in-1 block the tibia was subsequently subluxed anteriorward medial and ateral meniscal remnants were excised in their entirety remnants of the anterior and posterior cruciate ligaments were excised in their entirety excellent exposure of the proximal tibia was obtained the tibial osteotomy guide was placed on the proximal tibial osteotomy cut was made once again the knee was irrigated with copious amounts of sterile saline solution the patella was subsequently everted lateralward thickened scar tissue around the patella was removed the patella was subsequently cut utilizing a freehand technique and was drilled prepared for final preparation and placement of patella socially flexion-extension gaps were checked and the equal and symmetric trials were placed to the appropriate femoral and tibial trials with poly-spacer being placed for equal flexion and extension gaps and full range of motion including extension to 0 and flexion to 140 the trial components after having been taken to recovery range of motion was subsequently removed meticulous hemostasis was obtained and maintained subsequently a knee block injection of joint cocktail including ropivacaine 0.5% 150 mg. Bupivacaine 0.5 % epinephrine 1-200,030 mL's toradol 30 mg dexamethasone 4 mg ketamine 10 mg clonidine 100 micrograms normal saline solution 30 mg was infiltrated into the soft tissues of the posterior knee medial lateral gutters and periosteal synovium special attention was paid to protect neurovascular structures at all times subsequently trial components having been removed the knee was irrigated with sterile saline solution. debris was removed the proximal tibia was subsequently prepared and was made ready for the placement of the tibial component tibial component was also cemented and tamped into position the femoral component was subsequently placed and cemented in the position the patellar component was subsequently cemented in position because hemostasis once again obtained and maintained wound having been thoroughly irrigated with debridement and debridement lavage was performed as well as a medial parapatellar incision closed with #1 Vicryl in interrupted fashion subcutaneous was closed with #2 Vicryl skin was closed with skin clips. PA-C was necessary for prepping and drapping as well as wound closure of deep fascia Sub cutaneous tissue and skin and was necessary for the case. A sterile compressive dressing was placed patient was taken to recovery in stable condition of report dictated by Rahul I attest to the content of the Intraoperative Record and any orders documented therein. Any exceptions are noted below. I attest to the content of the Intraoperative Record and any orders documented therein. Any exceptions are noted below.
[2017-03-14] MEDS ORDERED: MAGNESIUM HYDROXIDE SUSP 30 ML UDC PO PRN (15:00)
[2017-03-14] MEDS ORDERED: BISACODYL 10 MG SUPP PR PRN (15:00)
[2017-03-14] MEDS ORDERED: ALUMINUM/MAGNESIUM/SIMETH (MAALOX MAX) 30 ML UDC PO PRN (15:00)
[2017-03-14] MEDS ORDERED: MoRPHine SULFATE 2 MG/ML CARP IV PRN (15:00)
--- NOTE | 2017-03-14 15:18 | Anesthesiology Progress Note ---
Anesthesia Post Op Note Date & Time Mar 14, 2017 at 15:17 Vital Signs Pain Intensity: 0 Vital Signs Past 12 Hours Date Time Temp Pulse Resp B/P (MAP) Pulse Ox O2 Delivery O2 Flow Rate FiO2 03/14/17 15:10 62 16 136/57 97 Nasal Cannula 2 03/14/17 15:00 58 16 126/52 98 Oxymask 10 03/14/17 14:50 36.4 67 16 113/51 97 Oxymask 10 03/14/17 11:18 36.8 58 18 185/79 96 Room Air Notes Mental Status: alert / awake / arousable, participated in evaluation Pt Amnestic to Procedure: Yes Nausea / Vomiting: adequately controlled Pain: adequately controlled Airway Patency, RR, SpO2: stable & adequate BP & HR: stable & adequate Hydration State: stable & adequate Neuraxial Anesthesia: was administered, sensory block is resolving Anesthetic Complications: no major complications apparent
--- NOTE | 2017-03-14 15:45 | DIAGNOSTIC IMAGING REPORT ---
RIGHT KNEE 1 OR 2 VIEWS ROUTINE CLINICAL HISTORY: 61 years-old Female presenting with postoperative right total knee arthroplasty. TECHNIQUE: Frontal and lateral views of the right knee were obtained. COMPARISON: None. FINDINGS: Postsurgical changes of total right knee arthroplasty. Suggestion of patellar resurfacing. Skin mary and surgical drains noted. Expected intra-articular and soft tissue emphysema. Diffuse soft tissue swelling. Apparent osseous fragment along the medial femoral condyle. Fracture fragment cannot be excluded. No malalignment at the knee joint. IMPRESSION: 1. Apparent osseous fragment along the medial femoral condyle. Fracture fragment cannot be excluded. Follow-up imaging to be considered. Electronically signed by: Hayden Lira M.D. 03/14/2017 3:44 PM Dictated Date/Time: 03/14/2017 3:41 PM
[2017-03-14] MEDS: FERROUS GLUCONATE 324 MG TAB PO SCH (17:59)
[2017-03-14] MEDS: D5W AND 1/2NSS + 20MEQ KCL 1,000 ML IV SCH (17:59)
[2017-03-14] MEDS: KETOROLAC TROMETHAMINE 30 MG/ML VIAL IV. SCH (18:00)
[2017-03-14] MEDS: OXYCODONE HCL IR 5 MG TAB (IMMEDIATE RELEASE) PO PRN (20:07)
[2017-03-14] MEDS: CEFAZOLIN IV 2,000 MG in DEXTROSE 5% 50ML 50 ML IV SCH (20:09)
[2017-03-14] MEDS: OXYCODONE HCL 10 MG TABCR (OXYCONTIN) PO SCH (20:56)
[2017-03-14] MEDS: ASPIRIN 81 MG ECTAB PO SCH (20:56)
[2017-03-14] MEDS: DOCUSATE SODIUM 100 MG CAP PO SCH (20:56)
[2017-03-14] MEDS: AMLODIPINE BESYLATE 5 MG TAB PO SCH (20:56)
[2017-03-14] MEDS: SENNA 8.6 MG TAB PO SCH (20:56)
[2017-03-14] MEDS: ACETAMINOPHEN 500 MG TAB PO SCH (22:02)
[2017-03-15] VITALS (7 sets, daily range): BP systolic 107–141; BP diastolic 68–82; PULSE 58–60; TEMP 36.4–36.6; O2SAT 95–98
[2017-03-15] MEDS: KETOROLAC TROMETHAMINE 30 MG/ML VIAL IV. SCH ×3 (00:08→11:32)
[2017-03-15] MEDS: D5W AND 1/2NSS + 20MEQ KCL 1,000 ML IV SCH (00:08)
[2017-03-15] MEDS: CEFAZOLIN IV 2,000 MG in DEXTROSE 5% 50ML 50 ML IV SCH (04:05)
[2017-03-15] MEDS: OXYCODONE HCL IR 5 MG TAB (IMMEDIATE RELEASE) PO PRN ×3 (04:32→13:20)
[2017-03-15 06:00] LABS: HEMATOCRIT 32.3 % (37-47); MEAN CORPUSCULAR HEMOGLOBIN 29.2 pg (25-34); MEAN CORPUSCULAR HGB CONC 33.1 g/dl (32-36); MEAN PLATELET VOLUME 11.6 fL (7.4-10.4); PLATELET COUNT 195 K/uL (130-400); RED BLOOD COUNT 3.67 M/uL (4.2-5.4); WHITE BLOOD COUNT 11.27 K/uL (4.8-10.8)
[2017-03-15] MEDS: ACETAMINOPHEN 500 MG TAB PO SCH ×3 (06:09→21:28)
[2017-03-15 06:32] LABS: BUN/CREATININE RATIO 20.3 (10-20); CALCIUM 8.6 mg/dl (8.5-10.1); POTASSIUM 4.4 mmol/L (3.5-5.1)
--- NOTE | 2017-03-15 08:22 | Anesthesiology Progress Note ---
Anesthesia Post Op Note Date & Time Mar 15, 2017 at 08:21 Vital Signs Vital Signs Past 12 Hours Date Time Temp Pulse Resp B/P (MAP) Pulse Ox O2 Delivery O2 Flow Rate FiO2 03/15/17 08:05 36.4 60 14 118/72 (87) 96 Room Air 03/15/17 03:48 36.4 60 16 107/68 (81) 96 Room Air 03/14/17 23:45 Room Air 03/14/17 23:04 36.4 60 19 109/67 (81) 95 Room Air 03/14/17 20:54 62 148/83 (104) Notes Mental Status: alert / awake / arousable, participated in evaluation Pt Amnestic to Procedure: Yes Nausea / Vomiting: adequately controlled Pain: adequately controlled Airway Patency, RR, SpO2: stable & adequate BP & HR: stable & adequate Hydration State: stable & adequate Neuraxial Anesthesia: sensory block resolved Anesthetic Complications: no major complications apparent
[2017-03-15] MEDS: FERROUS GLUCONATE 324 MG TAB PO SCH ×3 (08:36→18:00)
[2017-03-15] MEDS: DOCUSATE SODIUM 100 MG CAP PO SCH ×2 (08:37→20:58)
[2017-03-15] MEDS: PANTOprazole SOD 40 MG TAB PO SCH (08:37)
[2017-03-15] MEDS: CHOLECALCIFEROL 1000 INTER.UNIT TAB PO SCH (08:37)
[2017-03-15] MEDS: MULTIVITAMIN TAB PO SCH (08:38)
[2017-03-15] MEDS: OXYCODONE HCL 10 MG TABCR (OXYCONTIN) PO SCH ×2 (08:43→21:02)
[2017-03-15] MEDS ORDERED: MULTIVITAMIN TAB PO SCH (09:00)
[2017-03-15] MEDS: ASPIRIN 81 MG ECTAB PO SCH ×2 (09:34→20:58)
--- NOTE | 2017-03-15 10:12 | Orthopedic Progress Note ---
Orthopedic Progress Note Date of Service Mar 15, 2017. Subjective Post OP Day: 1 Reports: feeling well Objective N/V intact, dressing C/D/I (Hemovac in place), toes mobile Date Time Temp Pulse Resp B/P (MAP) Pulse Ox O2 Delivery O2 Flow Rate FiO2 03/15/17 08:57 96 Room Air 03/15/17 08:05 36.4 60 14 118/72 (87) 96 Room Air 03/15/17 03:48 36.4 60 16 107/68 (81) 96 Room Air 03/14/17 23:45 Room Air 03/14/17 23:04 36.4 60 19 109/67 (81) 95 Room Air 03/14/17 20:54 62 148/83 (104) 03/14/17 19:41 36.4 57 16 145/73 (97) 96 Room Air 03/14/17 18:00 99 Room Air 03/14/17 17:13 36.3 58 18 153/82 (105) 99 Nasal Cannula 3.0 03/14/17 16:44 36.4 57 16 136/78 (97) 98 Nasal Cannula 3.0 03/14/17 16:15 97 Room Air 2.0 03/14/17 16:15 Room Air 3.0 03/14/17 15:45 58 16 128/62 97 Nasal Cannula 2 03/14/17 15:30 58 16 139/64 97 Nasal Cannula 2 03/14/17 15:20 36.3 62 16 144/66 97 Nasal Cannula 2 03/14/17 15:10 62 16 136/57 97 Nasal Cannula 2 03/14/17 15:00 58 16 126/52 98 Oxymask 10 03/14/17 14:50 36.4 67 16 113/51 97 Oxymask 10 03/14/17 11:18 36.8 58 18 185/79 96 Room Air Laboratory Results 24 Hours: Test 03/15/17 05:27 Hematocrit 32.3 % Hemoglobin 10.7 g/dL Assessment & Plan Assessment: 61 yo female stable POD #1 s/p right TKA Plan: 1. Med management 2. DVT prophylaxis- ASA, SCDs 3. PT/OT 4. D/C planning- home w/ HH
[2017-03-15] MEDS: MoRPHine SULFATE 4 MG/ML 1 ML CARP\\VIAL IV PRN ×2 (11:06→11:32)
--- NOTE | 2017-03-15 18:41 | Discharge Instructions ---
Discharge Instructions Date of Service Mar 15, 2017. Admission Reason for Admission: Right Knee Osteoarthritis Discharge Discharge Diagnosis / Problem: Right Total Knee Replacement Discharge Goals Goal(s): Decrease discomfort, Improve function, Increase independence Activity Recommendations Activity Limitations: as noted below Weightbearing Status: Right weightbearing (as tolerated) . Instructions / Follow-Up Instructions / Follow-Up ACTIVITY RECOMMENDATIONS: SELF CARE INSTRUCTIONS AFTER TOTAL KNEE REPLACEMENT A. You may need to continue a physical therapy program after discharge from the hospital. There are several options available to you. Your doctor will assist you in selecting the best one for you. 1. An out-patient facility 2 to 3 times a week for therapy or home therapy. 2. Continue working on all exercises taught to you in the hospital. Your goals should be to increase bending of your knee to 90 degrees and beyond and to fully straighten your knee. B. You may progress at your own pace from walking with a walker or crutches to a cane; then to no assistive devices. C. Make walking a part of your daily routine. Be up as much as comfortable with rest periods throughout the day. Rest with leg elevation is very important. Use the ice wrap frequently for the first 3-4 weeks. D. There are no restrictions on activities. You may ride in a car, shop, participate in stone hand and all social activities. E. Wear the long elastic stockings (MARGARET hose) 20 hours a day for 2 weeks after surgery. They can be removed several times a day for laundering and for a bath. F. You may shower, no tub baths until cleared by your doctor. SPECIAL CARE INSTRUCTIONS: VERY IMPORTANT TO READ AND REVIEW A. There are a few signs you need to watch for after you are home. Call [facility] [place] if you notice any of the followin. Increased severe knee pain. Some pain is expected especially when you exercise. 2. Increased swelling in your leg or knee; pain or swelling of the calf muscle in either lower leg. 3. Any fluid drainage from the incision. 4. Shortness of breath or chest pain. B. Please call [facility] at if you have any concerns or questions about your operation or recovery. The doctor or his nurse will return your call promptly. C. You must take antibiotics before dental work, bladder, bowel or other surgery. Your doctor will provide you with a permanent care to carry describing this precaution. IMPORTANT: * REMEMBER TO TAKE ASPIRIN, 81 MG, TWICE DAILY FOR 4 WEEKS UNLESS OTHERWISE DIRECTED. THIS IS YOUR BLOOD THINNER. * HIGH RISK PATIENTS MAY BE PRESCRIBED A STRONGER BLOOD THINNER. THIS WILL BE PROVIDED AT DISCHARGE. * CALL IF INCREASED PAIN, REDNESS, DRAINAGE OR FEVER GREATER THAT 101. * WEAR MARGARET HOSE 20 HOURS PER DAY FOR 2 WEEKS. * YOU MAY HAVE A LARGE BAND-AID LIKE DRESSING (SILVERON). THIS WILL REMAIN ON YOUR INCISION FOR 7 DAYS, THEN CAN BE REMOVED. IF INCISION IS LEAKING THROUGH DRESSING, CALL THE OFFICE . Prevena- This is a large suction dressing covering your incision. This will help pull any excess drainage from the wound and allow your incision to heal properly. You may shower with this if you can keep the unit outside of the shower. If any bleeding or leakage is noted please call your doctor's office. This will remain on your incision for 7 days and then should be removed. This can be done yourself or by the home nursing staff if applicable. The entire unit is disposable once removed. Once removed, keep incision clean and dry. If redness or drainage is noted, please call your surgeon. FOLLOW UP VISIT: If appointment is not already scheduled: Please call [facility] [place] to make a follow-up appointment for 2 weeks after your surgery at . Current Hospital Diet Patient's current hospital diet: Regular Diet Discharge Diet Recommended Diet: Regular Diet Procedures Procedures Performed: Right Total Knee Arthroplasty with Stemmed Tibia [facility] journey to patient-matched 30 arthroplasty size 4 femur with a 14 x 100 mm stem on the tibia size 3 tibia with a 14 x 100 mm stem on the tibia a 15 poly-constrained 29 oval patella Pending Studies Studies pending at discharge: no Laboratory Results Hemoglobin A1c Test 02/20/17 14:10 Range/Units Estimated Average Glucose 103 mg/dl Hemoglobin A1c 5.2 4.5-5.6 % Medical Emergencies . Who to Call and When: Medical Emergencies: If at any time you feel your situation is an emergency, please call 911 immediately. . Non-Emergent Contact Non-Emergency issues call your: Primary Care Provider, Surgeon . "Provider Documentation" section prepared by Satnam Hightower. . VTE Core Measure Inpt VTE Proph given/why not?: Other Anticoagulation (ASA 81mg po bid x 1 month ), T.EUri Stockings, SCD's [place] Drug Monitoring Program Search Results: patient reviewed within database, no issues identified
[2017-03-15] MEDS: SENNA 8.6 MG TAB PO SCH (20:58)
[2017-03-15] MEDS: AMLODIPINE BESYLATE 5 MG TAB PO SCH (20:58)
[2017-03-16] MEDS: OXYCODONE HCL IR 5 MG TAB (IMMEDIATE RELEASE) PO PRN ×3 (05:04→18:38)
[2017-03-16] MEDS: ACETAMINOPHEN 500 MG TAB PO SCH ×2 (05:52→15:35)
[2017-03-16 06:46] VITALS: BP 109/70; PULSE 60; TEMP 36.6; O2SAT 95
[2017-03-16] MEDS: CHOLECALCIFEROL 1000 INTER.UNIT TAB PO SCH (07:12)
[2017-03-16] MEDS: ASPIRIN 81 MG ECTAB PO SCH (07:12)
[2017-03-16] MEDS: MULTIVITAMIN TAB PO SCH (07:13)
[2017-03-16] MEDS: PANTOprazole SOD 40 MG TAB PO SCH (07:13)
[2017-03-16] MEDS: DOCUSATE SODIUM 100 MG CAP PO SCH (07:13)
[2017-03-16] MEDS: FERROUS GLUCONATE 324 MG TAB PO SCH ×2 (07:13→12:19)
--- NOTE | 2017-03-16 07:15 | Orthopedic Progress Note ---
Orthopedic Progress Note Date of Service Mar 16, 2017. Subjective Post OP Day: 2 Reports: feeling well, pain controlled w PO medications, Denies: complaints, chest pain, SOB, nausea / vomiting, light headedness, calf pain Objective calves soft nontender, N/V intact, capillary refill less than 2 sec., dressing C /D/I (prevena intact), A&O x3, toes mobile Date Time Temp Pulse Resp B/P (MAP) Pulse Ox O2 Delivery O2 Flow Rate FiO2 03/16/17 06:46 36.6 60 16 109/70 (83) 95 Room Air 03/15/17 23:50 Room Air 03/15/17 23:04 36.6 59 18 108/71 (83) 95 Room Air 03/15/17 20:53 58 114/78 (90) 03/15/17 16:38 36.6 58 19 141/69 (93) 98 Room Air 03/15/17 15:00 Room Air 03/15/17 14:12 36.4 60 14 117/82 (94) 98 Room Air 03/15/17 08:57 96 Room Air 03/15/17 08:05 36.4 60 14 118/72 (87) 96 Room Air 03/15/17 08:00 Room Air Assessment & Plan Assessment: 61 yo female stable POD #2 s/p right TKA Plan: 1. Med management 2. DVT prophylaxis- ASA, SCDs 3. PT/OT 4. D/C planning- home w/ HH Discharge Planning Discharge Planning: home with home health DVT Prophylaxis: TEDs, SCDs, ASA Therapy: Physical Therapy
[2017-03-16] MEDS: OXYCODONE HCL 10 MG TABCR (OXYCONTIN) PO SCH (07:16)
[2017-03-16] MEDS ORDERED: ASPEC81 PO (07:18)
[2017-03-16] MEDS ORDERED: RXC5 PO (07:18)
[2017-03-16] MEDS ORDERED: OXYSR10 PO (07:18)
[2017-03-16] MEDS ORDERED: ACET-24 PO (07:18)
[2017-03-16] MEDS ORDERED: ONDA8TAB6 PO (07:18)
--- NOTE | 2017-03-16 09:43 | DISCHARGE SUMMARY ---
DATE OF DISCHARGE: 03/16/2017. DISCHARGE DIAGNOSIS: Degenerative joint disease, right knee. SECONDARY DIAGNOSES: Hypertension, obesity, gastroesophageal reflux disease, sciatica, history of deep venous thrombosis in the past. CONSULTS: None. COMPLICATIONS: None. PROCEDURES: Right total knee arthroplasty performed by Dr. Kay on 03/14/2017. BRIEF HISTORY: As dictated in history and physical. HOSPITAL SUMMARY: The patient was admitted on the above date and had the above-noted surgery performed which she tolerated well. On the first postoperative day, she was feeling well. Neurovascularly intact. Dressings clean, dry and intact. Toes were mobile. Vital signs were stable. She was afebrile. Hemoglobin was 10.7 and she was started on physical therapy protocol and continued on DVT prophylaxis and pain management. By her second postoperative day, she continued to feel well. Pain was controlled. Vital signs were stable. She was afebrile. Dressings were intact. Toes were mobile. Neurovascular intact. Calves are soft, nontender and it was felt she could be discharged to home with home health services. For further review, please see chart. LAB AND X-RAY DATA: As per chart. DISCHARGE INSTRUCTIONS: The patient was discharged to home in satisfactory condition on 03/16/2017. DIET: Regular. ACTIVITY: Weightbearing as tolerated right lower extremity. Follow TK instruction sheets and special care instructions as noted. Follow up with Dr. Kay in 2 weeks. The patient to call for appointment if one has not been made for you. DISCHARGE MEDICATIONS: Acetaminophen 1000 mg p.o. q. 8 hours, aspirin 81 mg p.o. b.i.d., Zofran 8 mg p.o. q. 8 hours p.r.n., OxyContin 10 mg p.o. q. 12 hours, oxycodone 5-10 mg p.o. q. 4 hours p.r.n. Resume home medications as listed. Stop taking old dose of Tylenol. Resume once daily dosing of aspirin after 30 days of taking twice daily tablet and stop taking Meloxicam.
[2017-03-16 13:06] VITALS: BP 109/70; PULSE 60; TEMP 36.6; O2SAT 95
[2017-03-16 16:14] VITALS: BP 131/72; PULSE 59; TEMP 36.9; O2SAT 98
[2019-03-14] MEDS ORDERED: ROPIVACAINE 5MG/ML 30 ML 150 MG, BUPIVACAINE/EPINEPHR 0.5% MPF 30 ML, KETOROLAC TROMETH... INFIL SCH ×7 (06:00)
== END 2017-03-16 19:00 | disposition home health service (06) | DRG 470 ==
LOC: C.ACU 10:36 → C.3E 11:00 → ENRESERV 15:35
PROVIDERS: ADMIT Orthopaedic Surgery; ATTEND Orthopaedic Surgery
PROC: 0SRC0J9 Replacement of Right Knee Joint with Synthetic Substitute, Cemented, Open Approach (ICD-10-PCS; principal; 2017-03-14 12:30)
DX: M17.11 Unilateral primary osteoarthritis, right knee (principal); Z68.43 Body mass index [BMI] 50.0-59.9, adult; I10 Essential (primary) hypertension; E66.9 Obesity, unspecified; K21.9 Gastro-esophageal reflux disease without esophagitis; Z79.899 Other long term (current) drug therapy; Z96.652 Presence of left artificial knee joint; Z86.718 Personal history of other venous thrombosis and embolism